=== PATIENT | female | born 1955 | race Caucasian/White ===

== ENCOUNTER 2021-04-07 09:44 | Emergency (ER) | payer MEDICARE | END 2021-04-07 11:00 | disposition home or self-care (01) | LOC: JD.ED 09:44 | DX: S01.111A Laceration without foreign body of right eyelid and periocular area, initial encounter (principal); W00.0XXA Fall on same level due to ice and snow, initial encounter | CPT/HCPCS: 12011; 70450; 70450-26; 70486; 70486-26; 99283-25 ==